=== PATIENT | female | born 1990 | race American Indian/Alaskan Native ===

== ENCOUNTER 2017-07-12 14:54 | Emergency (ER) | payer MEDICARE, OTHER ==
[2017-07-12 15:08] VITALS: TEMP 98.7; O2SAT 98
--- NOTE | 2017-07-12 15:58 | RAD ---
PROCEDURE: CHEST RADIOGRAPH, 1 VIEW HISTORY: chest pain COMPARISON: None available. FINDINGS: LUNGS: Clear. PLEURA: No pneumothorax or pleural fluid seen. CARDIOVASCULAR: Normal. OSSEOUS STRUCTURES: Mild dextroscoliosis centered in the mid thoracic spine versus mild side bending to the left VISUALIZED UPPER ABDOMEN: Normal. OTHER FINDINGS: None. IMPRESSION: No acute consolidation.
[2017-07-12 16:11] LABS: BASO # 0.1 K/uL (0.0-0.2); BASO % 1.2 % (0.0-2.0); EOS # 0.2 K/uL (0.0-0.7); EOS % 2.6 % (0.0-4.0); HEMATOCRIT 41.4 % (34.0-47.0); LYMPH # 1.8 K/uL (1.0-4.3); LYMPH % 26.2 % (20.0-40.0); MEAN CELL VOLUME 85.3 fL (81.0-99.0); MEAN CORPUSCULAR HEMOGLOBIN 28.8 pg (27.0-31.0); MEAN CORPUSCULAR HGB CONC 33.8 g/dL (33.0-37.0); MEAN PLATELET VOLUME 10.6 fL (7.2-11.7); MONO # 0.8 K/uL (0.0-0.8); MONO % 10.9 % (0.0-10.0); NRBC % 0.1 % (0.0-2.0); RED CELL DISTRIBUTION WIDTH 13.3 % (11.5-14.5); WHITE BLOOD COUNT 6.9 K/uL (4.8-10.8)
[2017-07-12 16:18] LABS: CHLORIDE 99 mmol/L (98-107); SODIUM 139 mmol/L (132-148)
[2017-07-12 16:19] LABS: POTASSIUM 4.1 mmol/L (3.6-5.2)
[2017-07-12 16:21] LABS: ALB/GLOB RATIO 1.3 (1.0-2.1); ALKALINE PHOSPHATASE 61 U/L (38-126); ALT/SGPT 26 U/L (9-52); AST/SGOT 20 U/L (14-36); BILIRUBIN,TOTAL 0.5 mg/dL (0.2-1.3); BLOOD UREA NITROGEN 9 mg/dL (7-17); CARBON DIOXIDE 28 mmol/L (22-30); GFR AFRICAN-AMERICAN > 60; GLUCOSE,RANDOM 93 mg/dL (65-105); TOTAL PROTEIN 7.4 g/dL (6.3-8.3)
[2017-07-12 16:22] LABS: CALCIUM 9.6 mg/dl (8.6-10.4)
[2017-07-12 16:59] VITALS: BP 116/78; PULSE 91; RESP 18
--- NOTE | 2017-07-12 18:25 | C.PDOC ---
History Of Present Illness 27 y/o female, with no past medical history, presents to ED with c/o sharp, sub- sternal chest pain for 3 days. Patient reports pain increases with movement and palpation. Denies shortness of breath. Notes she has not taken any pain medications for pain. Denies any medical problems. Denies family history of early cardiac problems. Otherwise, denies fever, chills, cough, nausea, vomiting, abdominal pain, or other complaints. Time Seen by Provider: 07/12/17 15:18 Chief Complaint (Nursing): Chest Pain History Per: Patient History/Exam Limitations: no limitations Onset/Duration Of Symptoms: Days Current Symptoms Are (Timing): Still Present Quality: Sharp, "Pain" Associated Symptoms: denies: Nausea, Diaphoresis Exacerbating Factors: Movement, Other (palpation) Recent travel outside of the [place]: No Past Medical History Reviewed: Historical Data, Nursing Documentation, Vital Signs Vital Signs: Last Vital Signs Temp 98.7 F 07/12/17 15:00 Pulse 91 H 07/12/17 16:58 Resp 18 07/12/17 16:58 BP 116/78 07/12/17 16:58 Pulse Ox 98 07/12/17 18:27 - Medical History PMH: No Chronic Diseases Family History: States: No Known Family Hx - Social History Hx Tobacco Use: No Hx Alcohol Use: No Hx Substance Use: No - Immunization History Hx Tetanus Toxoid Vaccination: No Hx Influenza Vaccination: Yes Hx Pneumococcal Vaccination: Yes Review Of Systems Except As Marked, All Systems Reviewed And Found Negative. Constitutional: Negative for: Fever, Chills Cardiovascular: Positive for: Chest Pain. Negative for: Palpitations Respiratory: Negative for: Cough, Shortness of Breath, Sputum, Wheezing Gastrointestinal: Negative for: Nausea, Vomiting, Abdominal Pain, Diarrhea Skin: Negative for: Rash Neurological: Negative for: Headache, Dizziness Physical Exam - Physical Exam Appears: Non-toxic, No Acute Distress Skin: Normal Color, Warm, Dry Head: Atraumatic, Normacephalic Oral Mucosa: Moist Neck: Normal ROM, Supple Chest: Symmetrical, Tenderness (midline chest tenderness to palpation), No Ecchymosis Cardiovascular: Rhythm Regular, No Murmur Respiratory: Normal Breath Sounds, No Accessory Muscle Use, No Rales, No Rhonchi , No Wheezing Gastrointestinal/Abdominal: Soft, No Tenderness, No Guarding, No Rebound Back: Normal Inspection Extremity: Normal ROM, Capillary Refill (< 2 sec.) Neurological/Psych: Oriented x3, Normal Speech, Normal Cognition ED Course And Treatment - Laboratory Results Result Diagrams: 07/12/17 16:06 07/12/17 16:06 ECG: Interpreted By Me ECG Rhythm: Sinus Rhythm Interpretation Of ECG: normal axis and intervals Rate From EC (bpm) O2 Sat by Pulse Oximetry: 98 (RA) Pulse Ox Interpretation: Normal - Radiology CXR: Interpreted by Me CXR Interpretation: Yes: No Acute Disease Medical Decision Making Medical Decision Making: EKG and labs ordered. Treated with Toradol IVP. On re-eval, patient feels better after medications given, and will follow up with PMD. Prescriptions given. Disposition - Disposition Referrals: Gabriella Zapata, [Non-Staff] - Disposition: HOME/ ROUTINE Disposition Time: 16:40 Condition: GOOD Additional Instructions: Thank you for letting us take care of you today. Your provider was Dr. Jimenez. You were treated for costochondritis. The emergency medical care you received today was directed at your acute symptoms. If you were prescribed any medication, please fill it and take as directed. It may take several days for your symptoms to resolve. Return to the Emergency Department if your symptoms worsen, do not improve, or if you have any other problems. Please contact your doctor or call one of the physicians/clinics you have been referred to that are listed on the Patient Visit Information form that is included in your discharge packet. Bring any paperwork you were given at discharge with you along with any medications you are taking to your follow up visit. Our treatment cannot replace ongoing medical care by a primary care provider (PCP) outside of the emergency department. Thank you for allowing the [facility] team to be part of your care today. Follow up with your doctor in 2-3 days for re-evaluation and further management. Prescriptions: Ibuprofen [Motrin] 600 mg PO Q6 PRN #20 tab PRN Reason: Pain, Moderate (4-7) Instructions: Costochondritis (ED) Forms: [employer] (K[place]i) - Clinical Impression Clinical Impression: Costochondritis - Scribe Statement The provider has reviewed the documentation as recorded by the Scribe SM Provider Attestation: All medical record entries made by the Scribe were at my direction and personally dictated by me. I have reviewed the chart and agree that the record accurately reflects my personal performance of the history, physical exam, medical decision making, and the department course for this patient. I have also personally directed, reviewed, and agree with the discharge instructions and disposition.
--- NOTE | 2017-07-20 18:39 | CARD ---
APPROVED REPORT EKG Measurement Heart [id number] <Conclusion> Unusual P axis, possible ectopic atrial rhythm Septal infarct, age undetermined Abnormal ECG
== END 2017-07-12 17:05 | disposition home or self-care (01) ==
LOC: C.ER 14:54
DX: M94.0 Chondrocostal junction syndrome [Tietze] (principal)
CPT/HCPCS: 71010; 80053; 84484; 85025; 85378; 96374; 99284; J1885

== ENCOUNTER 2017-12-12 12:18 | Emergency (ER) | payer MEDICARE, MEDICAID ==
[2017-12-12 12:33] VITALS: BMI 29.0
[2017-12-12 12:37] VITALS: BP 131/74; PULSE 64; RESP 18; TEMP 99; O2SAT 99
--- NOTE | 2017-12-12 13:12 | C.PDOC ---
History Of Present Illness WORSENING L PALM RASH X 1 MO, NEW ONSET SIM RASH R PALM X SEV DAYS. PS INITIALLY STARTED FLAT ROUND LESIONS THEN EVOLVES INTO SMALL PUSTULES, CLEAR WATERY DC. PS HAS BEEN PICKING THE LESIONS. SAW PMD FOR SAME, GIVEN UNK CREAM "FOR DRY SKIN" BUT DENIES CREAM IS ANTIBACTERIAL. +MILD ITCH. DENIES OTHER SIM LESIONS ON BODY. DENIES HO ECZEMA. NO OTHER ASSOC SX EXAM NAD SKIN B/L HANDS vesicular eruption W CHRONIC CHANGES, SCABS, DRIED LESIONS. NO GROSS VESICLES PRESENT. NO ERYTHEMA. NO SWELL. EXT NO HAND SWELL, EDEMA. NO DEFORM Time Seen by Provider: 12/12/17 12:49 Chief Complaint (Nursing): Abnormal Skin Integrity History Per: Patient History/Exam Limitations: no limitations Onset/Duration Of Symptoms: Days (1 month) Current Symptoms Are (Timing): Still Present Past Medical History Reviewed: Historical Data, Nursing Documentation, Vital Signs Vital Signs: Last Vital Signs Temp 99 F 12/12/17 12:33 Pulse 64 12/12/17 12:33 Resp 18 12/12/17 12:33 BP 131/74 12/12/17 12:33 Pulse Ox 99 12/12/17 13:17 Family History: States: No Known Family Hx - Social History Hx Tobacco Use: No Hx Alcohol Use: No Hx Substance Use: No - Immunization History Hx Tetanus Toxoid Vaccination: No Hx Influenza Vaccination: No Hx Pneumococcal Vaccination: No Review Of Systems Except As Marked, All Systems Reviewed And Found Negative. Constitutional: Negative for: Fever, Chills Musculoskeletal: Negative for: Hand Pain Skin: Positive for: Rash (worsening left palm rash) Neurological: Negative for: Weakness, Numbness Physical Exam - Physical Exam Appears: Non-toxic, No Acute Distress Skin: Warm, Dry, Other (Bilateral hands vesicular eruption with chronic changes , scabs, dried lesions. No gross vesicles present. No erythema. No swelling.) Oral Mucosa: Moist Respiratory: Normal Breath Sounds, No Rales, No Stridor, No Wheezing Extremity: Normal ROM, No Tenderness, Capillary Refill (<2 secs), No Deformity, No Swelling, Other Neurological/Psych: Oriented x3, Normal Speech, Normal Motor ED Course And Treatment O2 Sat by Pulse Oximetry: 99 (RA) Pulse Ox Interpretation: Normal Disposition Counseled Patient/Family Regarding: Diagnosis, Need For Followup, Rx Given - Disposition Referrals: [facility] [Outside] [facility] [Outside] Disposition: HOME/ ROUTINE Disposition Time: 13:13 Condition: GOOD Additional Instructions: How do dermatologists treat dyshidrotic eczema? Your treatment plan will be designed to treat your signs and symptoms. You may be responsible for doing much of the treatment at home. It is important to carefully follow your treatment plan, which may include several of the following : Soaks and cool compresses: Soaks or cool compresses that you apply 2 to 4 times a day can be very effective for drying blisters. You apply these for 15 minutes at a time. After each soak or cool compress, youll likely need to apply a medicated cream or ointment, such as a corticosteroid. Corticosteroid that you apply to your skin: This can reduce the inflammation and clear the blisters. Anti-itch medicine: An antihistamine pill or other anti-itch medicine can reduce scratching. Anything you can do to reduce scratching is helpful because scratching tends to worsen DE. Pramoxine (pra mox een): A cream or lotion containing this can relieve itch and pain. Moisturizer or a barrier repair cream: Your rn managed care will recommend a moisturizer or barrier repair cream. These can reduce dryness and flares of DE. Its important to apply the product after each shower, bath, and hand washing. Medicine to treat an infection: The skin with DE can get infected. Before prescribing this medicine, your rn managed care will first determine what type of infection you have. OverviewSymptomsCausesTreatment DYSHIDROTIC ECZEMA: DIAGNOSIS AND TREATMENT How do dermatologists diagnose dyshidrotic eczema? When dyshidrotic eczema (DE) flares, a rn managed care can diagnose it by looking at your skin. Your rn managed care will also ask about your medical history, work, hobbies, and recent stress level. If your rn managed care thinks that the DE could be due to an allergy, an allergy test called patch testing may be recommended. During patch testing, small amounts of substances that you may be allergic to are placed on your skin often the skin on your back. How do dermatologists treat dyshidrotic eczema? Your treatment plan will be designed to treat your signs and symptoms. You may be responsible for doing much of the treatment at home. It is important to carefully follow your treatment plan, which may include several of the following : Soaks and cool compresses: Soaks or cool compresses that you apply 2 to 4 times a day can be very effective for drying blisters. You apply these for 15 minutes at a time. After each soak or cool compress, youll likely need to apply a medicated cream or ointment, such as a corticosteroid. Corticosteroid that you apply to your skin: This can reduce the inflammation and clear the blisters. Anti-itch medicine: An antihistamine pill or other anti-itch medicine can reduce scratching. Anything you can do to reduce scratching is helpful because scratching tends to worsen DE. Pramoxine (pra mox een): A cream or lotion containing this can relieve itch and pain. Moisturizer or a barrier repair cream: Your rn managed care will recommend a moisturizer or barrier repair cream. These can reduce dryness and flares of DE. Its important to apply the product after each shower, bath, and hand washing. Medicine to treat an infection: The skin with DE can get infected. Before prescribing this medicine, your rn managed care will first determine what type of infection you have. Infection may cause dyshidrotic eczema to linger Having an infection can stop DE from clearing. In one study, researchers found that about 33% of patients who had DE on their hands got rid of the DE only after treating an infection on their feet. When treatment fails to clear DE or a patient has severe DE If the above treatments fail to work or you have severe DE, your rn managed care may recommend one of the following: Botulinum toxin: These injections, which are given in a dermatologists office, bring some patients relief because botulinum toxin temporarily relaxes the muscles and stops excessive sweating. Botulinum toxin is FDA approved to treat wrinkles and excessive sweating in the underarms but not DE. Its legal to prescribe a medicine for a condition other than its FDA-approved use. This is called off-label use, which can be very helpful for some patients. Draining large blisters in the office. Draining blisters is safe and effective when performed in a dermatologists office, but you should not drain your own blisters. Attempting this at home can lead to an infection, which can worsen DE and prevent clearing. Corticosteroid that works throughout the body: For a severe case, a corticosteroid pill or injection may be prescribed. Light treatments: This treatment exposes the skin with DE to ultraviolet (UV) light for a prescribed amount of time. Under a dermatologists care, light treatment can be a safe and effective treatment for DE. In one study, more than 90% of patients report good to excellent results after 6 to 8 weeks of treatment. Its extremely important to get these treatments at a hospital, clinic, or your dermatologists office. Trying to treat your skin by using a tanning bed is not recommended. Changing your diet: Sometimes, DE continues to flare despite all you do to treat it. If this happens, your rn managed care may recommend a change to your diet. Eliminating foods that contain nickel or cobalt helps some people. Many foods contain nickel or cobalt. If you are allergic to either, your rn managed care can tell you how to change your diet. Prescriptions: Hydrocortisone 1% Oint [Cortizone 1% Oint] 1 appl TP TID #1 tube Instructions: Dyshidrotic Eczema (ED) Forms: [employer] (Khmer) - Clinical Impression Clinical Impression: Dyshidrotic hand dermatitis - Scribe Statement The provider has reviewed the documentation as recorded by the Deepa Morgan Provider Attestation: All medical record entries made by the Deepa were at my direction and personally dictated by me. I have reviewed the chart and agree that the record accurately reflects my personal performance of the history, physical exam, medical decision making, and the department course for this patient. I have also personally directed, reviewed, and agree with the discharge instructions and disposition.
== END 2017-12-12 13:28 | disposition home or self-care (01) ==
LOC: C.ER 12:18
DX: L30.1 Dyshidrosis [pompholyx] (principal)

== ENCOUNTER 2018-06-30 21:28 | Emergency (ER) | payer MEDICARE, MEDICAID ==
[2018-06-30 21:28] VITALS: BMI 29.0
[2018-06-30 22:05] VITALS: BP 136/79
[2018-06-30] MEDS ORDERED: Lidocaine 2% MPF (5 ml) Inj ONE (22:56)
[2018-06-30] MEDS ORDERED: Bacitracin 500 Units/gm Oint Foilpak UD ONE (23:03)
--- NOTE | 2018-06-30 23:11 | C.PDOC ---
History Of Present Illness 28 year old female patient presents to the ER with c/o left lower gum swelling along with left lower jaw pain x 5 days. Pt also c/o pain and swelling of left thumb area after going to a nail salon which was 1 month ago. Patient states it has been going on for x1 week. Patient reports no fever, weakness, numbness, or headache. Time Seen by Provider: 06/30/18 22:20 Chief Complaint (Nursing): Dental Pain History Per: Patient History/Exam Limitations: no limitations Onset/Duration Of Symptoms: Days (x1week) Current Symptoms Are (Timing): Still Present Past Medical History Reviewed: Historical Data, Nursing Documentation, Vital Signs Vital Signs: Last Vital Signs Temp 98.2 F 06/30/18 23:33 Pulse 86 06/30/18 23:33 Resp 20 06/30/18 23:33 BP 136/79 06/30/18 22:02 Pulse Ox 99 07/01/18 01:47 Family History: States: No Known Family Hx - Social History Hx Tobacco Use: No Hx Alcohol Use: No Hx Substance Use: No - Immunization History Hx Tetanus Toxoid Vaccination: No Hx Influenza Vaccination: No Hx Pneumococcal Vaccination: No Review Of Systems Except As Marked, All Systems Reviewed And Found Negative. Constitutional: Negative for: Fever ENT: Positive for: Other (left lower gum swelling) Musculoskeletal: Positive for: Other (left lower jaw pain; swelling of left thumb) Neurological: Negative for: Weakness, Numbness, Headache Physical Exam - Physical Exam Appears: Well, Non-toxic, No Acute Distress Skin: Normal Color, Warm, Dry Head: Atraumatic, Normacephalic Eye(s): bilateral: Normal Inspection Nose: Normal Oral Mucosa: Moist Tongue: Normal Appearing Teeth: Tender To Palpation (left), Other (moderate diffuse caries left lower gum ; no facial swelling ) Gingiva: Erythema (left lower), No Swelling, Tender (left lower), No Abscess Throat: Normal Neck: Normal ROM, Supple Extremity: Normal ROM (x4), Tenderness (to nailbed of left thumb), Capillary Refill (<2 sec), No Deformity, Swelling (left thumb; yellow discoloration base of nail bed ) Extremity: Bilateral: Atraumatic Pulses: Left Radial: Normal, Right Radial: Normal Neurological/Psych: Oriented x3, Normal Speech, Normal Motor, Normal Sensation Gait: Steady ED Course And Treatment O2 Sat by Pulse Oximetry: 99 (RA) Pulse Ox Interpretation: Normal Progress Note: Impression: left lower gum swelling and jaw pain with left thumb swelling. Plans: -- penicillin. -- ultram. Reassess: Patient is resting comfortably. Tolerating PO. Patient tolerated I&D well. Patient is instructed on wound care and is advised to f/u with PMD and with a dentist in 1-2 days. - Incision & Drainage Of Abscess Prep Used: Betadine Procedure: Incised W/Scalpel Blade#: (15), Drained Pus, Irrigated Cavity W/ Saline Disposition Counseled Patient/Family Regarding: Diagnosis, Need For Followup - Disposition Disposition: HOME/ ROUTINE Disposition Time: 23:08 Condition: STABLE Additional Instructions: Please follow up with PMD / Dentist Take meds as directed Apply antibacterial oint to finger/ Apply warm compress to finger Wound check in 2 days with your doctor Return to ER if worse Prescriptions: Amoxicillin/Clavulanate [Augmentin 875 MG-125 MG] 1 tab PO BID #14 tab traMADol [Ultram] 50 mg PO TID #14 tab Instructions: Tooth Decay, Adult (DC), Paronychia (DC) Forms: [employer] (Sierra Leonean) - Clinical Impression Clinical Impression: Dental caries, Paronychia - 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 - Scribe Statement The provider has reviewed the documentation as recorded by the Scribteodoro Bradshaw Do All medical record entries made by the Scribe were at my direction and personally dictated by me. I have reviewed the chart and agree that the record accurately reflects my personal performance of the history, physical exam, medical decision making, and the department course for this patient. I have also personally directed, reviewed, and agree with the discharge instructions and disposition.
[2018-06-30 23:34] VITALS: PULSE 86; RESP 20; TEMP 98.2
[2018-07-01 01:42] VITALS: O2SAT 99
== END 2018-06-30 23:33 | disposition home or self-care (01) ==
LOC: C.ER 21:28
DX: K02.9 Dental caries, unspecified (principal); L03.012 Cellulitis of left finger